=== PATIENT | female | born 1955 | race Caucasian/White ===

== ENCOUNTER 2017-12-21 13:48 | Emergency (ER) | payer OTHER ==
[2017-12-21 15:53] LABS: URINE BLOOD (Dip) POC Trace-intact (NEGATIVE); URINE GLUCOSE (Dip) POC Negative (NEGATIVE); URINE KETONES (Dip) POC 1+ (NEGATIVE); URINE LEUKOCYTE EST (Dip) POC Trace (NEGATIVE); URINE NITRITE (Dip) POC Negative (NEGATIVE); URINE TOTAL PROTEIN POC 1+ (NEGATIVE)
[2017-12-21 15:53] LABS: URINE PH (Dip) POC 5.5 (5.0-8.5)
== END 2017-12-21 17:18 | disposition home or self-care (01) ==
LOC: FTE 17:18
DX: M54.12 Radiculopathy, cervical region (principal); Z79.82 Long term (current) use of aspirin
CPT/HCPCS: 72125; 81003; 93005; 99284-25